=== PATIENT | female | born 1990 | race Caucasian/White ===

== ENCOUNTER → 2022-12-07 | Outpatient (REF) | LOC: M LAB 15:26 | PROVIDERS: ATTEND Nurse Practitioner Adult Health | DX: Z02.1 Encounter for pre-employment examination (principal) ==

== ENCOUNTER → 2023-02-06 | Outpatient (REF) ==
[2023-02-06 09:25] LABS: RSV AMPLIFICATION NEGATIVE (NEGATIVE)
== END ==
LOC: M EMP 07:59
PROVIDERS: ATTEND Family Medicine
DX: Z20.828 Contact with and (suspected) exposure to other viral communicable diseases (principal)

== ENCOUNTER 2025-04-22 07:23 | Day surgery (SDC) | payer OTHER ==
[~2025-04-22] VITALS: Ht 144.8 cm; Wt 59.4 kg
[~2025-04-22 07:23] MED LIST: LARI1TAB3 PO; LIDOCAINE 2% 100 MG/5 ML SDV (FOR ANES.) As Ordered ONE; MIDAZOLAM INJ 2 MG/2 ML VIAL As Ordered ONE; ROCURONIUM BROMIDE 50MG/5ML VIAL As Ordered ONE; VITA200032 PO
[2025-04-22] MEDS: LR 1,000 ML IV SCH (08:25)
[2025-04-22] MEDS ORDERED: ACETAMINOPHEN 1000MG/100ML IV BAG As Ordered ONE (09:48)
[2025-04-22] MEDS ORDERED: SUGAMMADEX SODIUM 500 MG/5 ML VIAL As Ordered ONE (09:49)
[2025-04-22] MEDS ORDERED: dexAMETHasone 4 MG/ML 1 ML VIAL As Ordered ONE (09:49)
[2025-04-22] MEDS ORDERED: KETOROLAC 30 MG/ML 1 ML VIAL As Ordered ONE (09:49)
[2025-04-22] MEDS ORDERED: ONDANSETRON 4MG 2ML VIAL As Ordered ONE (09:50)
[2025-04-22] MEDS ORDERED: HYDROMORPHONE HCL 0.5 MG/0.5 ML SYRINGE IV PRN (10:25)
[2025-04-22] MEDS: ONDANSETRON 4MG 2ML VIAL IV PRN (11:13)
[2025-04-22 12:00] VITALS: BP 123/71; TEMP 98.2; O2SAT 96
== END 2025-04-22 12:05 | disposition home or self-care (01) ==
LOC: M SDC 07:23
PROVIDERS: ATTEND Obstetrics & Gynecology
DX: Z30.2 Encounter for sterilization (principal); Z91.018 Allergy to other foods
CPT/HCPCS: 36415; 58661; 81025; 85014; 85018; 86850; 86900; 86901; 88302; J0131; J0665; J1100; J1885; J2250; J2405; J3010